=== PATIENT | female | born 1985 | race Caucasian/White ===

== ENCOUNTER 2023-04-17 06:55 | Inpatient (IN) | payer BC ==
[2023-04-10 09:21] LABS: BASOPHILS # (AUTO) 0.1 X10'3 (0-0.2); BASOPHILS % (AUTO) 0.6 % (0-1); EOSINOPHILS # (AUTO) 0.1 X10'3 (0-0.9); EOSINOPHILS % (AUTO) 1.5 % (0-6); LYMPHOCYTES # (AUTO) 2.2 X10'3 (1.1-4.8); LYMPHOCYTES % (AUTO) 24.6 % (21-51); MEAN CORPUSCULAR HEMOGLOBIN 29.3 PG (27.0-31.0); MEAN CORPUSCULAR HGB CONC 32.6 g/dL (33.0-36.5); MEAN CORPUSCULAR VOLUME 89.8 FL (78-98); MEAN PLATELET VOLUME 8.7 FL (7.4-10.4); MONOCYTES # (AUTO) 0.7 X10'3 (0-0.9); MONOCYTES % (AUTO) 8.3 % (2-12); NEUTROPHILS # (AUTO) 5.7 X10'3 (1.8-7.7); PRE OP HEMATOCRIT 45.4 % (35.0-45.0); PRE OP HEMOGLOBIN 14.8 g/dL (12.0-16.0); PRE OP PLATELET COUNT 287 X10'3 (140-440); PRE OP WHITE BLOOD COUNT 8.8 10'3 (4.8-10.8); RED BLOOD COUNT 5.06 X10'6 (4.20-5.60); RED CELL DISTRIBUTION WIDTH 14.4 % (11.5-14.5)
[2023-04-10 09:29] LABS: HCG SERUM QL NEGATIVE
[2023-04-10 09:34] LABS: CHLORIDE 105 MMOL/L (99-107); PRE OP ANION GAP 8 (8-16); PRE OP POTASSIUM 4.3 MMOL/L (3.4-5.1); PRE OP SODIUM 139 MMOL/L (135-145); TOTAL CARBON DIOXIDE 25.7 MMOL/L (24-32)
[2023-04-10 09:53] LABS: ALKALINE PHOSPHATASE 65 IU/L (46-116); PRE OP BILIRUB, TOTAL 0.4 MG/DL (0.0-1.0)
[2023-04-10 09:58] LABS: ALBUMIN 3.7 G/DL (3.4-5.0); ALBUMIN/GLOBULIN RATIO 1.1 (1.1-1.5); BLOOD UREA NITROGEN 7 MG/DL (7-18); BUN/CREATININE RATIO 9.9 (10.0-20.0); CREATININE 0.71 MG/DL (0.40-0.90); PRE OP ALT 29 U/L (30-65); PRE OP AST 14 U/L (10-37); PRE OP GLUCOSE 92 MG/DL (70-104); eGFR > 90 ML/MIN
[~2023-04-17] VITALS: Ht 175.3 cm; Wt 129.4 kg
[2023-04-17] VITALS (35 sets, daily range): BP systolic 121–172; BP diastolic 41–91; PULSE 49–87; RESP 7–24; TEMP 97.6–98.6; O2SAT 96–100
[~2023-04-17 06:55] MED LIST: ONDA4TAB12 PO; PANT-47 PO; POTA-207 PO; ceFOXitin 2GM-NS 100mL ADDvant 100 ML IV ONE; famotidine 20mg tablet PO ONE
[2023-04-17] MEDS: ringers solution, lacted 1,000 ML IV SCH ×2 (08:02→20:59)
[2023-04-17] MEDS ORDERED: morphine 2 MG/ML inj. syringe IV PRN ×2 (09:20→14:45)
[2023-04-17] MEDS ORDERED: meperidine/PF 25mg/ml syringe IV PRN ×3 (09:20)
[2023-04-17] MEDS ORDERED: proCHLORperazine 10 MG/2 ml inj IV PRN (09:20)
[2023-04-17] MEDS ORDERED: ondansetron/PF 4mg/2ml inj IV PRN (09:20)
[2023-04-17] MEDS ORDERED: ringers solution, lacted 1,000 ML IV SCH (09:20)
[2023-04-17] MEDS ORDERED: morphine 4 MG/ML inj SYRINge IV PRN (09:20)
[2023-04-17] MEDS ORDERED: BUPIVAcaine/PF 2.5mg/ml (0.25%) 10ml vial ONE (11:40)
[2023-04-17] MEDS ORDERED: dexamethasone sod phosphate 10mg/ml inj ONE (11:45)
[2023-04-17] MEDS ORDERED: sevoflurane 250ml liquid IH ONE (11:45)
[2023-04-17] MEDS ORDERED: ondansetron/PF 4mg/2ml inj ONE (11:45)
[2023-04-17] MEDS ORDERED: rocuronium 10mg/ml inj IV ONE ×2 (11:45→12:02)
[2023-04-17] MEDS ORDERED: midazolam 1 mg/ML 2ml injection ONE (11:55)
[2023-04-17] MEDS ORDERED: fentaNYL/PF 50MCG/1 ML 2ML syringe ONE (11:55)
[2023-04-17] MEDS ORDERED: propofol inj 20 ML IV ONE (12:02)
[2023-04-17] MEDS ORDERED: LIDOcaine 2% (20mg/ml) 5ml vial ONE (12:02)
[2023-04-17] MEDS ORDERED: meperidine/PF 50mg/ml syringe ONE (12:14)
[2023-04-17] MEDS ORDERED: BUPIVAcaine/PF 2.5 mg/ml (0.25%) 30ml vial IJ ONE (12:32)
[2023-04-17] MEDS ORDERED: acetaminophen 1,000mg/100ml IV 100 ML IV ONE (13:17)
[2023-04-17] MEDS ORDERED: neostigmine methylsulfate 1 MG/ML 10ml vial ONE (13:21)
[2023-04-17] MEDS ORDERED: glycopyrrolate 0.2mg/ml inj ONE (13:21)
--- NOTE | 2023-04-17 13:28 | NUR ---
Received from OR via STRETCHER, accompanied by Anesthesiologist NEELAM and report given by Anesthesiolgist. SHE IS RESPONSIVE, BUT DROWSY, MONITOR SR, SAO2 98% ON 10 LPM ON MASK. THREE ADDOMINAL DRESSINGS ALL DRY AND INTACT, MISHA DRAINING SANGUINOUS DG. 18 G IV PATENT TO L AC W/ ACETAMINOPHEN RUNNING TO LR MAINLINE IV. NO REPORT OF PAIN AT THIS TIME, WILL CONTINUE TO MONITOR. Addendum: 04/17/23 at 1358 by Rajat Christopher RN Amended: Links added.
[2023-04-17] MEDS ORDERED: acetaminophen 325mg tablet PO PRN ×2 (14:45)
[2023-04-17] MEDS ORDERED: magnesium 2GM in 50ml NS 50 ML IV PRN (14:45)
[2023-04-17] MEDS ORDERED: potassium Cl 40MEQ/1/2NS 520ml 520 ML IV PRN (14:45)
[2023-04-17] MEDS ORDERED: magnesium 4gm in 100ml NS 100 ML IV PRN (14:45)
[2023-04-17] MEDS ORDERED: mag hydrox/Alum hydrox/simeth 30ml oral suspension PO PRN (14:45)
[2023-04-17] MEDS ORDERED: HYDROcodone/acetaminophen 5mg/325mg tablet PO PRN (14:45)
[2023-04-17] MEDS ORDERED: ondansetron 4mg rapidly disintigrating tab PO PRN (14:45)
[2023-04-17] MEDS ORDERED: magnesium hydroxide 30ml (MOM) UD suspension PO PRN (14:45)
[2023-04-17] MEDS ORDERED: magnesium Cl slow-release 64mg tablet PO PRN (14:45)
[2023-04-17] MEDS ORDERED: HYDROcodone/acetaminophen 10/325mg tab PO PRN (14:45)
[2023-04-17] MEDS ORDERED: potassium Cl 20 mEq SR tablet PO PRN (14:45)
[2023-04-17] MEDS ORDERED: NO HOME MEDS (16:22)
--- NOTE | 2023-04-17 17:28 | NUR ---
Report called to receiving nurse JAVIER. Transferred via BED W/ ONE BAG Belongings PT REPORTED 3/10 PAIN THROUGH MOST OF HER RR STAY...DECLINED ANY ANALGESIA AT FIRST. STATES "I'M FINE". WAS ABLE TO GET UP TO BSC W/ NO HEMODYNAMIC COMPROMISE. MONITOR SR -W/ OCCASIONAL HR DROP TO HIGH 40'S - PT DENIES ANY DIZZINESS OR OTHER COMPLAINT W/ LOW HR, AND DENIES ANY HX OF LOW HR. MISHA DRAIN EMPTIED X3 - 65ML, 40ML AND 25 ML OF YELLOW TINGED BILE. AT 1445 COMPLAINED OF NAUSEA - INITIALLY DECLINED MEDICATION, BUT AGREED TO ZOFRAN AT 1510, AND REPORTED NAUSEA GONE BY 1515. AT 1630, AGAIN REPORTED NAUSEA, AND STATES IT MAY BE DUE IN PART TO PAIN. MEDCATED W/ COMPAZINE AND DEMEROL W/ GOOD RELIEF OF BOTH. UP TO BSC AGAIN - VOIDED APPX. 100ML W/ EACH VOID. ABDOMINAL DRESSINGS REMAIN D&I. DR. BOLANOS ORDERED TELE BED OVERNIGHT. DR. GALLO HERE - STATUS REPORT, INCLUDING MISHA DRAIN OUTPUT AND APPEARANCE, PAIN AND NAUSEA COMPLAINTS. RECIEVED ORDER FOR CLEAR LIQ DIET, NPO AFTER MIDNIGHT. TRANSFERRED TO 4022 A VIA BED AT 1728. BED IN LOW POSITION, CALL LIGHT PROVIDED. Addendum: 04/17/23 at 1755 by Rajat Christopher RN Amended: Links added.
--- NOTE | 2023-04-17 17:50 | NUR ---
patient arrived on unit and is in stable condition and in no distress at this time. Patient is being monitored for post of vitals and fluids are running per md orders. Relinquishing all care and responsibility to ANIBAL Chiang.
[2023-04-17] MEDS: K and/or MAG REPLACEMENT MC SCH (20:00)
[2023-04-17] MEDS: piperacillin/tazo 4.5gm/100ml 100 ML IV SCH (20:21)
[2023-04-17] MEDS: dextrose 5%-1/2 normal saline 1,000 ML IV SCH ×2 (20:53→23:57)
[2023-04-18] VITALS (23 sets, daily range): BP systolic 117–168; BP diastolic 7–91; PULSE 53–93; RESP 12–18; TEMP 98.2–98.7; O2SAT 95–100
[2023-04-18] MEDS: morphine 2 MG/ML inj. syringe IV PRN ×2 (02:05→09:51)
[2023-04-18] MEDS: ondansetron/PF 4mg/2ml inj IV PRN ×3 (02:07→22:31)
[2023-04-18] MEDS: piperacillin/tazo 4.5gm/100ml 100 ML IV SCH ×4 (02:08→23:48)
[2023-04-18 06:07] LABS: BASOPHILS % (AUTO) 0.1 % (0-1); EOSINOPHILS % (AUTO) 0 % (0-6); HEMOGLOBIN 14.1 g/dl (12.0-16.0); LYMPHOCYTES # (AUTO) 0.8 X10'3 (1.1-4.8); LYMPHOCYTES % (AUTO) 4.6 % (21-51); MEAN CORPUSCULAR HEMOGLOBIN 29.1 PG (27.0-31.0); MEAN CORPUSCULAR HGB CONC 32.8 g/dL (33.0-36.5); MEAN CORPUSCULAR VOLUME 88.8 FL (78-98); MEAN PLATELET VOLUME 9.1 FL (7.4-10.4); MONOCYTES # (AUTO) 0.9 X10'3 (0-0.9); NEUTROPHILS # (AUTO) 15.7 X10'3 (1.8-7.7); NEUTROPHILS % (AUTO) 90.3 % (42-75); PLATELET COUNT 296 X10'3 (140-440); RED BLOOD COUNT 4.84 X10'6 (4.20-5.60); RED CELL DISTRIBUTION WIDTH 13.9 % (11.5-14.5); WHITE BLOOD COUNT 17.3 X10'3 (4.5-11.0)
[2023-04-18 06:28] LABS: ALANINE AMINOTRANSFERASE 62 U/L (12-78); ALBUMIN 3.4 G/DL (3.4-5.0); ALKALINE PHOSPHATASE 66 IU/L (46-116); ANION GAP 10 (8-16); ASPARTATE AMINO TRANSFERASE 30 U/L (10-37); BILIRUBIN,TOTAL 0.7 MG/DL (0.1-1.0); BLOOD UREA NITROGEN 6 MG/DL (7-18); BUN/CREATININE RATIO 8.7 (10.0-20.0); CALCIUM 8.7 MG/DL (8.5-10.1); CHLORIDE 100 MMOL/L (99-107); CREATININE 0.69 MG/DL (0.40-0.90); GLUCOSE 188 MG/DL (70-104); MAGNESIUM 1.7 MG/DL (1.5-2.4); POTASSIUM 3.7 MMOL/L (3.5-5.1); SODIUM 131 MMOL/L (135-145); TOTAL CARBON DIOXIDE 21.4 MMOL/L (24-32); TOTAL PROTEIN 6.7 G/DL (6.4-8.2); eCRCL 118 ML/MIN; eGFR > 90 ML/MIN
--- NOTE | 2023-04-18 06:37 | NUR ---
reported to days. noted pt npo and anticipates possible surgery this am. noted output from danish since surgery 200ml.
[2023-04-18] MEDS: K and/or MAG REPLACEMENT MC SCH ×2 (08:00→19:36)
[2023-04-18] MEDS: normal saline 1000ml 1,000 ML IV SCH ×2 (08:35→18:30)
[2023-04-18] MEDS ORDERED: iohexol 300mg/ml 100ml inj. ONE ×2 (15:17)
[2023-04-18] MEDS ORDERED: sevoflurane 250ml liquid IH ONE (15:35)
[2023-04-18] MEDS ORDERED: glucagon, human recombinant 1mg kit ONE ×2 (15:35→18:20)
[2023-04-18] MEDS ORDERED: fentaNYL/PF 50MCG/1 ML 2ML syringe ONE (15:40)
[2023-04-18] MEDS ORDERED: midazolam 1 mg/ML 2ml injection ONE (15:41)
[2023-04-18 16:00] LABS: HEMOGLOBIN A1C 5.4 % (4.5-6.2)
[2023-04-18] MEDS ORDERED: rocuronium 10mg/ml inj IV ONE (16:00)
[2023-04-18] MEDS ORDERED: LIDOcaine 2% (20mg/ml) 5ml vial ONE (16:00)
[2023-04-18] MEDS ORDERED: propofol inj 20 ML IV ONE (16:00)
--- NOTE | 2023-04-18 16:14 | NUR ---
Problems reprioritized. Patient report given, questions answered & plan of care reviewed with jeniffer merchant in recovery.
--- NOTE | 2023-04-18 16:25 | NUR ---
Received from OR via , accompanied by Anesthesiologist and report given by Anesthesiolgist. PATIENT A&OX4, DENIES PAIN, V/S WNL, SCD ON , PIV 20G RUE, DRESSING WITH MISHA MINIMAL OUTPUT CDI TO ABDOMEN
[2023-04-18] MEDS ORDERED: ondansetron/PF 4mg/2ml inj ONE (16:41)
[2023-04-18] MEDS ORDERED: neostigmine methylsulfate 1 MG/ML 10ml vial ONE (16:41)
[2023-04-18] MEDS ORDERED: glycopyrrolate 0.2mg/ml inj ONE (16:41)
[2023-04-18] MEDS ORDERED: dexamethasone sod phosphate 4mg/ml inj. ONE (16:41)
--- NOTE | 2023-04-18 16:48 | NUR ---
Patient in room ORTHO 4022. I have received report from sumeet in recovery and had the opportunity to ask questions and assume patient care.
--- NOTE | 2023-04-18 17:05 | NUR ---
PATIENT A&OX4, DENIES PAIN, V/S WNL, SCD ON , PIV 20G RUE, DRESSING WITH MISHA MINIMAL OUTPUT CDI TO ABDOMEN.PATIENT TAKEN TO ORTHO FLOOR ROOM WITH ALL BELONGINGS AND HOOKED UP TO ALL MONITORS IN ROOM AND REPORT GIVEN TO RN WHO HAS TAKEN OVER PATIENT CARE.
--- NOTE | 2023-04-18 18:00 | NUR ---
Patient in room ORTHO 4022. I have received report from ANIBAL Rodriguez and had the opportunity to ask questions and assume patient care.
--- NOTE | 2023-04-18 18:38 | NUR ---
Problems reprioritized. Patient report given, questions answered & plan of care reviewed with eugenio merchant.
[2023-04-19 01:42] VITALS: BP 142/74; PULSE 52; RESP 17; TEMP 98.4; O2SAT 98
--- NOTE | 2023-04-19 02:21 | NUR ---
pt. walked alone around the unit couple of times .she did very well
[2023-04-19 06:00] VITALS: BP 139/64; PULSE 60; RESP 18; TEMP 98; O2SAT 97
--- NOTE | 2023-04-19 06:37 | NUR ---
Problems reprioritized. Patient report given, questions answered & plan of care reviewed with SALINA Canada.
[2023-04-19 07:15] LABS: ALANINE AMINOTRANSFERASE 50 U/L (12-78); ALBUMIN 3.4 G/DL (3.4-5.0); ALBUMIN/GLOBULIN RATIO 1.1 (1.1-1.5); ALKALINE PHOSPHATASE 58 IU/L (46-116); ANION GAP 11 (8-16); ASPARTATE AMINO TRANSFERASE 21 U/L (10-37); BILIRUBIN,TOTAL 0.8 MG/DL (0.1-1.0); BLOOD UREA NITROGEN 8 MG/DL (7-18); BUN/CREATININE RATIO 10.7 (10.0-20.0); CALCIUM 8.7 MG/DL (8.5-10.1); CHLORIDE 98 MMOL/L (99-107); CREATININE 0.75 MG/DL (0.40-0.90); GLUCOSE 162 MG/DL (70-104); MAGNESIUM 1.8 MG/DL (1.5-2.4); PHOSPHORUS 2.7 MG/DL (2.3-4.5); POTASSIUM 3.7 MMOL/L (3.5-5.1); SODIUM 132 MMOL/L (135-145); TOTAL CARBON DIOXIDE 23.1 MMOL/L (24-32); TOTAL PROTEIN 6.6 G/DL (6.4-8.2); eCRCL 108 ML/MIN; eGFR 87 ML/MIN
[2023-04-19] MEDS: normal saline 1000ml 1,000 ML IV SCH ×3 (07:15→20:00)
[2023-04-19 07:30] LABS: LIPASE 2463 U/L (16-77)
[2023-04-19 08:00] VITALS: RESP 16; O2SAT 97
[2023-04-19] MEDS: K and/or MAG REPLACEMENT MC SCH ×2 (08:00→20:00)
[2023-04-19] MEDS: piperacillin/tazo 4.5gm/100ml 100 ML IV SCH ×2 (09:09→16:40)
--- NOTE | 2023-04-19 09:39 | NUR ---
rounded- elevated lipase, patient will need to stay another night, needs to trend down.
[2023-04-19 10:00] VITALS: BP 143/80; PULSE 62; RESP 17; TEMP 98.2; O2SAT 98
[2023-04-19 10:41] LABS: BASOPHILS % (AUTO) 0.2 % (0-1); EOSINOPHILS % (AUTO) 0 % (0-6); HEMATOCRIT 42.4 % (35.0-45.0); HEMOGLOBIN 14.1 g/dl (12.0-16.0); LYMPHOCYTES # (AUTO) 1.4 X10'3 (1.1-4.8); LYMPHOCYTES % (AUTO) 6.4 % (21-51); MEAN CORPUSCULAR HEMOGLOBIN 29.5 PG (27.0-31.0); MEAN CORPUSCULAR HGB CONC 33.2 g/dL (33.0-36.5); MEAN CORPUSCULAR VOLUME 88.9 FL (78-98); MEAN PLATELET VOLUME 9.6 FL (7.4-10.4); MONOCYTES # (AUTO) 1.8 X10'3 (0-0.9); MONOCYTES % (AUTO) 8.2 % (2-12); NEUTROPHILS # (AUTO) 18.9 X10'3 (1.8-7.7); NEUTROPHILS % (AUTO) 85.2 % (42-75); PLATELET COUNT 330 X10'3 (140-440); RED BLOOD COUNT 4.77 X10'6 (4.20-5.60); RED CELL DISTRIBUTION WIDTH 13.9 % (11.5-14.5); WHITE BLOOD COUNT 22.3 X10'3 (4.5-11.0)
[2023-04-19] MEDS: ondansetron/PF 4mg/2ml inj IV PRN (14:27)
--- NOTE | 2023-04-19 15:49 | NUR ---
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
[2023-04-19 18:00] VITALS: BP 145/71; PULSE 53; RESP 16; TEMP 98.5; O2SAT 99
--- NOTE | 2023-04-19 18:20 | NUR ---
Patient in room ORTHO 4022. I have received report from SALINA HARRIS and had the opportunity to ask questions and assume patient care.
[2023-04-19] MEDS ORDERED: proCHLORperazine 10mg tablet PO PRN (19:55)
[2023-04-19 22:00] VITALS: BP 140/84; PULSE 56; RESP 20; TEMP 97.4; O2SAT 97
[2023-04-20] VITALS (7 sets, daily range): BP systolic 121–149; BP diastolic 58–78; PULSE 50–60; RESP 16–18; TEMP 97.9–99.2; O2SAT 97–99
[2023-04-20] MEDS: piperacillin/tazo 4.5gm/100ml 100 ML IV SCH ×4 (00:01→23:35)
[2023-04-20] MEDS: normal saline 1000ml 1,000 ML IV SCH ×2 (04:50→11:42)
--- NOTE | 2023-04-20 06:20 | NUR ---
Problems reprioritized. Patient report given, questions answered & plan of care reviewed with SALINA HARRIS.
--- NOTE | 2023-04-20 06:20 | NUR ---
Patient in room ORTHO 4022. I have received report from Bret Murphy and had the opportunity to ask questions and assume patient care.
[2023-04-20 08:07] LABS: ALANINE AMINOTRANSFERASE 133 U/L (12-78); ALBUMIN 3.6 G/DL (3.4-5.0); ALKALINE PHOSPHATASE 79 IU/L (46-116); ANION GAP 11 (8-16); ASPARTATE AMINO TRANSFERASE 78 U/L (10-37); BILIRUBIN,TOTAL 1.4 MG/DL (0.1-1.0); BLOOD UREA NITROGEN 6 MG/DL (7-18); BUN/CREATININE RATIO 8.2 (10.0-20.0); CALCIUM 8.9 MG/DL (8.5-10.1); CHLORIDE 97 MMOL/L (99-107); CREATININE 0.73 MG/DL (0.40-0.90); GLUCOSE 122 MG/DL (70-104); LIPASE 187 U/L (16-77); MAGNESIUM 1.9 MG/DL (1.5-2.4); PHOSPHORUS 3.4 MG/DL (2.3-4.5); SODIUM 133 MMOL/L (135-145); TOTAL CARBON DIOXIDE 25.4 MMOL/L (24-32); TOTAL PROTEIN 7.2 G/DL (6.4-8.2); eCRCL 111 ML/MIN; eGFR 90 ML/MIN
[2023-04-20 08:14] LABS: POTASSIUM 2.9 MMOL/L (3.5-5.1)
--- NOTE | 2023-04-20 08:17 | NUR ---
notified critical K+2.9. No new orders at this time, will replace per protocol.
[2023-04-20] MEDS: potassium Cl 20 mEq SR tablet PO PRN ×2 (08:19→12:42)
[2023-04-20] MEDS: K and/or MAG REPLACEMENT MC SCH ×2 (08:20→20:00)
[2023-04-20 08:22] LABS: BASOPHILS % (AUTO) 0.1 % (0-1); EOSINOPHILS % (AUTO) 0 % (0-6); HEMATOCRIT 43.3 % (35.0-45.0); HEMOGLOBIN 14.7 g/dl (12.0-16.0); LYMPHOCYTES # (AUTO) 1.7 X10'3 (1.1-4.8); LYMPHOCYTES % (AUTO) 7.1 % (21-51); MEAN CORPUSCULAR HEMOGLOBIN 29.9 PG (27.0-31.0); MEAN CORPUSCULAR HGB CONC 33.9 g/dL (33.0-36.5); MEAN CORPUSCULAR VOLUME 88.2 FL (78-98); MEAN PLATELET VOLUME 9.3 FL (7.4-10.4); MONOCYTES # (AUTO) 2.3 X10'3 (0-0.9); MONOCYTES % (AUTO) 9.5 % (2-12); NEUTROPHILS # (AUTO) 20.2 X10'3 (1.8-7.7); NEUTROPHILS % (AUTO) 83.3 % (42-75); PLATELET COUNT 332 X10'3 (140-440); RED BLOOD COUNT 4.91 X10'6 (4.20-5.60); RED CELL DISTRIBUTION WIDTH 13.9 % (11.5-14.5); WHITE BLOOD COUNT 24.3 X10'3 (4.5-11.0)
[2023-04-20 08:51] LABS: PLATELET ESTIMATE NORMAL; TOTAL CELLS COUNTED 100
--- NOTE | 2023-04-20 10:41 | NUR ---
Following POULTRY BONER KD. This business writer's own assessments and documentation were completed.
--- NOTE | 2023-04-20 10:46 | NUR ---
Per Md surgical rounds DC orders for CT/ KUB and UA. To continue with ABX x24hrs and re-evaluate in the am. PT aware and agreeable with POC at this time. Questions answered.
--- NOTE | 2023-04-20 10:57 | NUR ---
Student documentation:BALDEV [place] State I have reviewed and agree with all interventions, assessments performed and documented by the student.
--- NOTE | 2023-04-20 12:38 | NUR ---
Dayne for regular diet per Dr. Penaloza
[2023-04-20] MEDS ORDERED: magnesium 2GM in 50ml NS 50 ML IV PRN (17:10)
[2023-04-20] MEDS ORDERED: potassium Cl 20 mEq SR tablet PO PRN ×2 (17:10)
[2023-04-20] MEDS ORDERED: magnesium Cl slow-release 64mg tablet PO PRN (17:10)
[2023-04-20] MEDS ORDERED: potassium Cl 40MEQ/1/2NS 520ml 520 ML IV PRN ×2 (17:10)
[2023-04-20] MEDS ORDERED: magnesium 4gm in 100ml NS 100 ML IV PRN (17:10)
--- NOTE | 2023-04-20 18:36 | NUR ---
Patient in room ORTHO 4022. I have received report from SALINA HARRIS and had the opportunity to ask questions and assume patient care.
[2023-04-21] MEDS: normal saline 1000ml 1,000 ML IV SCH ×2 (03:52→08:55)
[2023-04-21 06:00] VITALS: BP 150/96; PULSE 92; TEMP 98.4; O2SAT 99
[2023-04-21 06:08] LABS: BASOPHILS % (AUTO) 0.2 % (0-1); EOSINOPHILS % (AUTO) 0.2 % (0-6); HEMOGLOBIN 14.3 g/dl (12.0-16.0); LYMPHOCYTES # (AUTO) 1.5 X10'3 (1.1-4.8); LYMPHOCYTES % (AUTO) 8.4 % (21-51); MEAN CORPUSCULAR HEMOGLOBIN 29.3 PG (27.0-31.0); MEAN CORPUSCULAR HGB CONC 33.2 g/dL (33.0-36.5); MEAN CORPUSCULAR VOLUME 88.2 FL (78-98); MONOCYTES # (AUTO) 1.7 X10'3 (0-0.9); MONOCYTES % (AUTO) 9.3 % (2-12); NEUTROPHILS # (AUTO) 15.1 X10'3 (1.8-7.7); NEUTROPHILS % (AUTO) 81.9 % (42-75); PLATELET COUNT 285 X10'3 (140-440); RED BLOOD COUNT 4.88 X10'6 (4.20-5.60); RED CELL DISTRIBUTION WIDTH 13.6 % (11.5-14.5); WHITE BLOOD COUNT 18.4 X10'3 (4.5-11.0)
--- NOTE | 2023-04-21 06:25 | NUR ---
Problems reprioritized. Patient report given, questions answered & plan of care reviewed with ANIBAL ADAN.
[2023-04-21 06:32] LABS: ALANINE AMINOTRANSFERASE 141 U/L (12-78); ALBUMIN/GLOBULIN RATIO 0.8 (1.1-1.5); ALKALINE PHOSPHATASE 98 IU/L (46-116); ANION GAP 8 (8-16); ASPARTATE AMINO TRANSFERASE 58 U/L (10-37); BILIRUBIN,TOTAL 1.2 MG/DL (0.1-1.0); BLOOD UREA NITROGEN 4 MG/DL (7-18); BUN/CREATININE RATIO 6.2 (10.0-20.0); CALCIUM 9.3 MG/DL (8.5-10.1); CHLORIDE 99 MMOL/L (99-107); CREATININE 0.65 MG/DL (0.40-0.90); GLUCOSE 111 MG/DL (70-104); PHOSPHORUS 3.1 MG/DL (2.3-4.5); POTASSIUM 3.3 MMOL/L (3.5-5.1); SODIUM 134 MMOL/L (135-145); TOTAL CARBON DIOXIDE 26.8 MMOL/L (24-32); TOTAL PROTEIN 6.6 G/DL (6.4-8.2); eCRCL 125 ML/MIN; eGFR > 90 ML/MIN
[2023-04-21] MEDS: K and/or MAG REPLACEMENT MC SCH (08:00)
[2023-04-21] MEDS: piperacillin/tazo 4.5gm/100ml 100 ML IV SCH (08:51)
[2023-04-21 10:00] VITALS: BP 139/80; PULSE 63; TEMP 98.6; O2SAT 96
[2023-04-21] MEDS ORDERED: AMOX-115 PO (10:52)
--- NOTE | 2023-04-21 12:34 | NUR ---
PATIENT STABLE AND APPROPRIATE FOR DISCHARGE, IV AND MISHA DRAIN REMOVED, EDUCATION GIVEN, NEW MEDS CALLED INTO PREFERRED PHARMACY, ALL BELONGINGS SENT WITH PATIENT, PATIENT WALKED TO AWAITING CAR WITH MOM WHERE HER MOM WILL TAKE HER HOME
== END 2023-04-21 12:34 | disposition home or self-care (01) | DRG 418 ==
LOC: PAS 06:55 → ORTHO 4S 17:30
PROVIDERS: ADMIT Family Medicine; ATTEND Surgery
PROC: 0FT44ZZ Resection of Gallbladder, Percutaneous Endoscopic Approach (ICD-10-PCS; principal; 2023-04-17 11:45)
PROC: 0F798DZ Dilation of Common Bile Duct with Intraluminal Device, Via Natural or Artificial Opening Endoscopic (ICD-10-PCS; 2023-04-18)
DX: K80.12 Calculus of gallbladder with acute and chronic cholecystitis without obstruction (principal); E87.1 Hypo-osmolality and hyponatremia; Z68.41 Body mass index [BMI] 40.0-44.9, adult; E03.9 Hypothyroidism, unspecified; D72.829 Elevated white blood cell count, unspecified; K66.0 Peritoneal adhesions (postprocedural) (postinfection); E66.01 Morbid (severe) obesity due to excess calories; K83.9 Disease of biliary tract, unspecified; K42.9 Umbilical hernia without obstruction or gangrene; E87.6 Hypokalemia; R74.01 Elevation of levels of liver transaminase levels; Z82.49 Family history of ischemic heart disease and other diseases of the circulatory system; Z83.3 Family history of diabetes mellitus
CPT/HCPCS: 43262; 43276; Z7506; Z7508; 36415; 80053; 82948; 83036; 83690; 83735; 84100; 84132; 84145; 84703; 85007; 85025; 87081; A4215; A4618; A6223; A6449; A7000; C1769; C2625; G0378; J0131; J0694; J0780; J1100; J1610; J2175; J2250; J2270; J2405; J2543; J2704; J2710; J3010; J3490; J7030; J7120; Q0164; Q9967